=== PATIENT | female | born 1945 | race Caucasian/White ===

== ENCOUNTER → 2017-01-09 15:02 | Outpatient (CLI) | payer MEDICARE, BC | END | disposition home or self-care (01) | LOC: D.MAMMO 09:00 | DX: Z85.3 Personal history of malignant neoplasm of breast (principal); Z12.31 Encounter for screening mammogram for malignant neoplasm of breast ==

== ENCOUNTER → 2018-01-13 19:27 | Outpatient (CLI) | payer MEDICARE, BC | END | disposition home or self-care (01) | LOC: D.MAMMO 09:30 | DX: Z85.3 Personal history of malignant neoplasm of breast (principal) ==

== ENCOUNTER 2019-09-08 19:00 | Outpatient (CLI) | payer MEDICARE | END 2019-09-08 23:59 | disposition home or self-care (01) | LOC: D.MAMMO 19:00 | PROVIDERS: ATTEND Family Medicine | DX: Z85.3 Personal history of malignant neoplasm of breast (principal) ==

== ENCOUNTER → 2020-09-20 10:55 | Outpatient (CLI) | payer MEDICARE, OTHER ==
[2020-09-20 12:31] LABS: COMPLEMENT C4 15.1 mg/dL (17.4-52.2)
[2020-09-20 12:32] LABS: CALC OSMOLALITY 277 mosm/kg (275-300); CARBON DIOXIDE 26.2 mmol/L (21.0-32.0); CHLORIDE - SERUM 102 mmol/L (98-107); CREATININE - SERUM 0.6 mg/dL (0.6-1.3); GLUCOSE 89 mg/dL (74-106); POTASSIUM - SERUM 3.9 mmol/L (3.5-5.1); SODIUM 140 mmol/L (136-145); UREA NITROGEN 13 mg/dL (7-18); eGFR NON AFRICAN AMERICAN > 90 mL/min (90-120)
--- NOTE | 2020-09-20 13:33 | NUR ---
TB Skin test administered to left forearm. Paper sent with patient. lot #[id number]
[2020-09-22 11:11] LABS: ANA REFLEX - DIRECT Negative (Negative); ANA REFLEX - SCL-70 <0.2 AI (0.0-0.9)
[2020-09-22 15:12] LABS: ANCA - ANTIMYELOPEROXIDASE <9.0 U/mL (0.0-9.0); ANCA - ANTIPROTEINASE 3 <3.5 U/mL (0.0-3.5); ANCA - ATYPICAL <1:20 titer (Neg:<1:20); ANCA - CYTOPLASMIC <1:20 titer (Neg:<1:20); ANCA - PERINUCLEAR <1:20 titer (Neg:<1:20)
== END | disposition home or self-care (01) ==
LOC: D.OPS 10:55 → D.LAB 10:55
PROVIDERS: ATTEND Internal Medicine Pulmonary Disease
DX: D71 Functional disorders of polymorphonuclear neutrophils (principal)